=== PATIENT | female | born 1965 | race Two or more races ===

== ENCOUNTER 2020-12-08 08:30 | Outpatient (CLI) | payer OTHER | END 2020-12-08 09:19 | disposition home or self-care (01) | LOC: SONOGRAMA 08:30 | PROVIDERS: ATTEND Pathology Anatomic Pathology & Clinical Pathology | DX: E04.2 Nontoxic multinodular goiter (principal) ==

== ENCOUNTER 2021-06-29 10:53 | Outpatient (CLI) | payer OTHER ==
[2021-06-29] MEDS ORDERED: LIPITO PO (16:36)
== END 2021-06-29 15:00 | disposition home or self-care (01) ==
LOC: EKG 10:53
PROVIDERS: ATTEND Surgery
DX: I10 Essential (primary) hypertension (principal)

== ENCOUNTER 2021-06-29 12:30 | Inpatient (IN) | payer OTHER ==
[~2021-06-29] VITALS: Ht 162.6 cm; Wt 85.3 kg
[2021-06-29] MEDS ORDERED: LIPITO PO (16:36)
[2021-07-18] MEDS ORDERED: ATORVASTATIN CA20 MG (16:18)
[2021-07-18] MEDS ORDERED: ALENDRONATE SOD70 MG (16:18)
[2021-07-21] MEDS ORDERED: PERCOCET 5-3251 EACH PO (11:14)
[2021-07-21] MEDS ORDERED: PRILOSEC OTC20 MG PO (11:14)
== END 2021-07-21 14:11 | disposition home or self-care (01) | DRG 331 ==
LOC: SURH 07-04 10:30 → O/R 07-18 09:37 → SURH 07-18 19:54
PROVIDERS: ADMIT Surgery; ATTEND Surgery
PROC: 0DTN4ZZ Resection of Sigmoid Colon, Percutaneous Endoscopic Approach (ICD-10-PCS; 2021-07-18)
PROC: 07BD3ZX Excision of Aortic Lymphatic, Percutaneous Approach, Diagnostic (ICD-10-PCS; 2021-07-18)
PROC: 3E0F7SF Introduction of Other Gas into Respiratory Tract, Via Natural or Artificial Opening (ICD-10-PCS; 2021-07-18)
PROC: 0DTP4ZZ Resection of Rectum, Percutaneous Endoscopic Approach (ICD-10-PCS; principal; 2021-07-18 11:30)
DX: C7A.025 Malignant carcinoid tumor of the sigmoid colon (principal); Z20.822 Contact with and (suspected) exposure to COVID-19

== ENCOUNTER 2021-07-10 10:05 | Day surgery (SDC) | payer OTHER ==
[~2021-07-10 10:05] MED LIST: LIPITO PO
== END 2021-07-10 15:00 | disposition home or self-care (01) ==
LOC: AMB-ENDOS 10:05
PROVIDERS: ATTEND Surgery
DX: C18.7 Malignant neoplasm of sigmoid colon (principal); C7A.025 Malignant carcinoid tumor of the sigmoid colon; Z20.822 Contact with and (suspected) exposure to COVID-19

== ENCOUNTER → 2021-07-17 12:20 | Outpatient (CLI) | payer OTHER ==
[~2021-07-17 12:20] MED LIST changes: +ALENDRONATE SOD70 MG; +ATORVASTATIN CA20 MG; +PERCOCET 5-3251 EACH PO; +PRILOSEC OTC20 MG PO
== END | disposition home or self-care (01) ==
LOC: LAB 12:20
PROVIDERS: ATTEND Surgery
DX: Z03.818 Encounter for observation for suspected exposure to other biological agents ruled out (principal); C7A.025 Malignant carcinoid tumor of the sigmoid colon; R59.0 Localized enlarged lymph nodes; Z80.0 Family history of malignant neoplasm of digestive organs